=== PATIENT | male | born 1945 | race Caucasian/White ===

== ENCOUNTER → 2016-12-29 | Outpatient (CLI) | payer OTHER ==
[~2016-12-29] MED LIST: ATEN-102 PO; ATOR80TA41 PO; IBUP600T26 PO; PRED1SUS6 EACH EYE; PRIM50TA PO; TAB-TAB PO
[2016-12-31 23:50] LABS: ACETYLCHOLINE REC BINDING LESS THAN 0.30 nmol/L (())
[2017-01-04 13:53] LABS: STRIATED MUCLE AB TITER ND (<1:40)
== END ==
LOC: PLAB 08:23
PROVIDERS: ATTEND Psychiatry & Neurology Neurology
DX: G70.00 Myasthenia gravis without (acute) exacerbation (principal)
CPT/HCPCS: 83519; 86255